=== PATIENT | female | born 1990 | race Caucasian/White ===

== ENCOUNTER 2020-03-14 14:07 | Emergency (ER) | payer BC ==
[~2020-03-14] VITALS: Ht 162.6 cm; Wt 68.0 kg
[2020-03-14 14:34] LABS: ABSOLUTE NEUTROPHILS 11.5 thou/uL (1.4-8.2); BASOPHILS 0.6 % (0.0-2.0); EOSINOPHILS 0.9 % (0.0-3.0); HEMOGLOBIN 12.9 gm/dL (12.0-15.0); LYMPHOCYTES 13.3 % (24.0-44.0); MCH 29.5 pg (26.0-34.0); MCV 89.2 fL (80.0-100.0); MONOCYTES 3.4 % (1.0-8.0); PLATELET COUNT 284 thou/uL (150-400); POLYS 81.8 % (36.0-66.0); RBC 4.37 mil/uL (4.20-5.00); RDW 12.4 % (10.5-14.5); URINE BILIRUBIN NEGATIVE (Negative); URINE BLOOD 3+ (Negative); URINE GLUCOSE-RANDOM* NEGATIVE (Negative); URINE KETONES NEGATIVE (Negative); URINE LEUKOCYTES-REFLEX TRACE (Negative); URINE NITRITE-REFLEX NEGATIVE (Negative); URINE PROTEIN (DIPSTICK) TRACE (Negative); URINE SPECIFIC GRAVITY 1.025 (1.005-1.035); URINE UROBILINOGEN 0.2 E.U./dl (0.2-1.0); WBC 14.1 thou/uL (4.0-11.0)
[2020-03-14 14:35] LABS: URINE CLARITY CLOUDY; URINE COLOR REDDISH
[2020-03-14 14:38] LABS: SQUAMOUS 0-3 Few /LPF (0-3)
[2020-03-14 14:39] LABS: BACTERIA-REFLEX 1-9 Few /HPF (None Seen); CASTS None Seen /LPF (None Seen); CRYSTALS None Seen /LPF (None Seen); URINE RBC >20 Many /HPF (0-2); URINE WBC-REFLEX 6-15 Few /HPF (0-5)
[2020-03-14 14:42] LABS: CALCIUM 8.3 mg/dL (8.5-10.1); POTASSIUM 3.4 mmol/L (3.5-5.1)
[2020-03-14 14:48] LABS: ALBUMIN 3.8 g/dL (3.4-5.0); TOTAL BILIRUBIN 0.3 mg/dL (0.2-1.0)
[2020-03-14] MEDS ORDERED: KEFLEX500 M1 PO (16:21)
[2020-03-14] MEDS ORDERED: ONDANSETRON HCL4 M2 PO (16:21)
[2020-03-14] MEDS ORDERED: ULTRAM 50MG TAB50 MG PO (16:21)
[2020-03-14] MEDS ORDERED: TORADOL 10 MG T10 MG PO (16:54)
[2020-03-14 17:03] VITALS: BP 98/56
== END 2020-03-14 17:03 | disposition home or self-care (01) ==
LOC: ER 14:07
PROVIDERS: Physician Assistant
DX: N39.0 Urinary tract infection, site not specified (principal); N94.6 Dysmenorrhea, unspecified; N83.201 Unspecified ovarian cyst, right side; R11.2 Nausea with vomiting, unspecified; Z88.5 Allergy status to narcotic agent